=== PATIENT | male | born 1995 | race Caucasian/White ===

== ENCOUNTER → 2017-10-14 | Outpatient (CLI) | payer BC ==
--- NOTE | 2017-10-14 13:57 | DIAGNOSTIC IMAGING REPORT ---
VENOUS DOPP LOWER EXT UNILAT CLINICAL HISTORY: 22 years-old Male presenting with LT LEG PAIN,R/O DVT. TECHNIQUE: Real-time grayscale and color and spectral Doppler ultrasound imaging of the veins of the left lower extremity was performed. Compression and augmentation were also utilized. COMPARISON: None. FINDINGS: Left: Common femoral vein: Patent. Greater saphenous vein: Patent. Deep femoral vein: Patent. Femoral vein: Patent. Popliteal vein: Patent. Calf veins: Patent. Other: None. IMPRESSION: No evidence of deep venous thrombosis. Electronically signed by: Librado Patino M.D. 10/14/2017 1:56 PM Dictated Date/Time: 10/14/2017 1:55 PM
== END | disposition home or self-care (01) ==
LOC: C.ULTR 13:19
PROVIDERS: ATTEND Physician Assistant
DX: M79.605 Pain in left leg (principal)